=== PATIENT | female | born 1980 | race Caucasian/White ===

== ENCOUNTER → 2018-01-19 11:22 | Outpatient (REF) | payer BC, SELFPAY ==
--- NOTE | 2018-01-19 15:20 | PAPFT_PTH ---
PATIENT: Sary Dockery LOC: [facility] U#:[id number] AGE/SX: 45/F ROOM: RE01/19/[address]: Brittney Goldstein MD, DC : 1980 BED: DIS: SPEC #: [id number] RECD: 01/20/18 12:56 STATUS: MARY REMinal #: [id number] DAVID: 01/19/18 15:[address]: Brittney Goldstein DEPT: [facility] Cytology RECD BY: Indigo Cueva Tissues: 1 - CX/ENDOCX FOR PAP SMEARS Procedures: PAP THIN PREP/UVM Screening HPV DNA PROBE Comments: [id number]
== END ==
LOC: LBN 11:22
PROVIDERS: PCP Family Medicine; Visit Provider Family Medicine
DX: Z12.4 Encounter for screening for malignant neoplasm of cervix (principal); Z11.51 Encounter for screening for human papillomavirus (HPV)
CPT/HCPCS: 88142; 87624

== ENCOUNTER 2018-07-07 11:50 | Outpatient (REF) | payer BC, SELFPAY | END 2018-07-07 12:10 | LOC: LBN 11:50 | PROVIDERS: PCP Family Medicine; Visit Provider Family Medicine | DX: J06.9 Acute upper respiratory infection, unspecified (principal) | CPT/HCPCS: 87449 ==

== ENCOUNTER 2019-07-17 18:03 | Emergency (ER) | payer BC, SELFPAY ==
[2019-07-17 18:10] VITALS: BP 154/104; PULSE 105; TEMP 36.7; O2SAT 99
--- NOTE | 2019-07-17 19:05 | ED.GENADUL_ITS ---
Discharge Plan Disposition Patient Disposition: HOME Condition: Stable Discharge Details Chief Complaint: Orthopedic Clinical Impression: Rupture of left plantaris tendon Primary Care Provider: Brittney Goldstein ED Provider: Mounika Best Home Meds and New Rx's Prescriptions: No Action fluticasone propionate 50 mcg/actuation spray,suspension 2 spray NS BID PRN (Reason: allergy symptoms) Qty: 9.9 RF: 0 sertraline 100 mg tablet 100 mg PO DAILY Qty: 90 RF: 4 albuterol sulfate [ProAir HFA] 8.5 GM HFA aerosol inhaler 2 puff Inhalation Q4H PRN Qty: 1 RF: 12 Mirena 1 EACH intrauterine device 1 ea Intrauterine ONCE Qty: 1 RF: 0 triamcinolone acetonide 0.1 % ointment 1 applic Topical BID PRNQty: 80 RF: 3 omeprazole 20 mg capsule,delayed release(DR/EC) 20 mg PO DAILY Qty: 90 RF: 12 hydrochlorothiazide 25 mg tablet 25 mg PO DAILY Qty: 90 RF: 11 ibuprofen 200 mg Tablet 800 mg PO Q6H PRNRF: 0 Discharge Instructions Instructions: Tendon Rupture (ED) Additional Instructions: Rest. Activities as tolerated. Elevate injury to prevent swelling. Ice to the area of discomfort for 15 min. 3-5 times daily. Motrin every 8 hours with food or Tylenol every 6 hours for soreness if needed over the counter for comfort. Followup with orthopedic doctor as discussed for reevaluation Hans wrap and crutches as discussed. Return for any worsening or concerns sooner if needed. Stand Alone Forms: Work Release Referrals: Godfrey Donovan MD [ [facility] STAFF PHYSICIAN] - Medical Decision Making Is a very pleasant 39-year-old woman presenting to the emergency room for complaints of left calf pain which occurred while her child was hanging around her ankle and she was dragging her on the floor playing this evening prior to arrival. Patient reports an immediate and unmistakable pop noted in the left posterior proximal calf. Patient's exam is consistent with plantaris tendon rupture. Nothing to indicate Achilles tendon injury at this time. No Achilles tenderness with palpation. Achilles tendon intact with calf squeeze. Patient's history and exam are consistent with plantaris tendon injury. We did discuss conservative treatments as well as rice. No bony pain with palpation on exam. Full range of motion on exam. Recommended follow-up with orthopedics for reevaluation. Work note provided for light duty, crutches and Hans wrap provided for support. Patient agrees with plan of care. The patient was stable and requested discharge. Prior to discharge, my usual and customary return precautions were reviewed with the patient - this included follow-up instructions and reasons to return to the Emergency Department if conditions worsens, does not improve as expected, or other new concerns arise. HPI General Date/Time Provider Initiated Documentation: 07/17/19 18:51 . HPI Narrative: Is a 39-year-old patient presenting to the emergency room for complaints of left calf pain. Patient was dragging her 12-year-old daughter on the ground while she was hanging around her foot and felt a sharp pop in the proximal aspect of her left calf posteriorly. Patient felt resounding pop and immediate pain. Patient reports pain with ambulation since that time. Denies anterior leg pain. Denies ankle pain or foot pain. No significant knee pain. Injury occurred prior to arrival. No other sites of pain or concerns at this time. No open wounds. Denies numbness, tingling or weakness. Related Data Home Medications Medication Instructions Recorded Confirmed albuterol sulfate [Proair Hfa] 2 puff INHALATION Q4H PRN #1 02/12/17 07/17/19 canister levonorgestrel [Mirena] 1 ea INTRAUTERINE ONCE #1 implant 04/08/17 07/17/19 fluticasone propionate 50 2 spray NS BID PRN #9.9 gm 07/07/18 07/17/19 mcg/actuation nasal spray,suspension sertraline 100 mg tablet 100 mg PO DAILY #90 tab-cap 07/07/18 07/17/19 triamcinolone acetonide 0.1 % 1 applic TOPICAL BID PRN #80 gm 07/07/18 07/17/19 topical ointment omeprazole 20 mg capsule,delayed 20 mg PO DAILY #90 tab-cap 12/16/18 07/17/19 release hydrochlorothiazide 25 mg tablet 25 mg PO DAILY #90 tab-cap 04/20/19 07/17/19 ibuprofen 800 mg PO Q6H PRN 07/17/19 07/17/19 Previous Rx's Medication Instructions Recorded albuterol sulfate [Proair Hfa] 2 puff INHALATION Q4H PRN #1 02/12/17 canister fluticasone propionate 50 2 spray NS BID PRN #9.9 gm 07/07/18 mcg/actuation nasal spray,suspension sertraline 100 mg tablet 100 mg PO DAILY #90 tab-cap 07/07/18 omeprazole 20 mg capsule,delayed 20 mg PO DAILY #90 tab-cap 12/16/18 release hydrochlorothiazide 25 mg tablet 25 mg PO DAILY #90 tab-cap 04/20/19 Allergies Allergy/AdvReac Type Severity Reaction Status Date / Time amoxicillin Allergy Intermediate Rash Unverified 07/17/19 18:13 egg Allergy Intermediate tingling Unverified 07/17/19 18:13 in mouth Sulfa (Sulfonamide AdvReac Intermediate NAUSEA Unverified 07/17/19 18:13 Antibiotics) General Stated Complaint: Orthopedic ALEXANDRO: 3 Review of Systems All systems reviewed & are unremarkable except as noted in HPI and below Musculoskeletal Musculoskeletal: Reports abnormal gait (Limping), Denies back pain, Denies li mited range of motion, Denies numbness and Denies tingling Integumentary/Breasts Skin/Breast: Denies wounds Neurologic Neurologic: Reports abnormal gait (Limping), Denies numbness and Denies tingling [facility] Medical History Angioedema (Chronic 08/11/13) Cervical high risk HPV (human papillomavirus) test positive (Chronic 08/24/14) HPV High Risk NON-16/18 Detected HPV 16 and 18 not detected Depressive disorder (Chronic) Dermatitis, dyshidrotic (Chronic 04/25/15) Essential hypertension (Chronic 03/30/13) with normal norepinephrines, total metanephrines; T3 initially subnormal but then F/U was normal Keloid scar (Resolved) have been injected Lesion of brain (Resolved) neg. CSF; white lesion on MRI; FAC neurology Migraine (Chronic) Seasonal allergic rhinitis (Chronic) Wheezing (Resolved 09/13/13) Surgical History (Updated 01/22/19 @ 06:06 by Aayush Osborne) Dilation and curettage (~04/2012) Family History Mother Essential hypertension Stroke Asthma Father Essential hypertension Personal history of malignant neoplasm Skin Heart disease [place] Hyperlipidemia Sister Essential hypertension Grandfather Personal history of malignant neoplasm LUNG Grandfather Alcohol abuse Essential hypertension Heart disease Hyperlipidemia Grandmother No problems noted. Grandmother Personal history of malignant neoplasm Breast Son No problems noted. Son Depression Daughter No problems noted. Daughter No problems noted. 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 Well hydrated. Alert and oriented. MUSCULOSKELETAL: Limping gait. Right leg exam benign. Left leg no thigh pain with palpation, knee pain with palpation. No significant posterior knee pain with palpation. Moderate proximal posterior calf pain with palpation focally. No evident bruising or swelling. Achilles tendon intact and nontender. No ankle pain with palpation of the foot pain with palpation. Flexion extension intact at foot. Pain in calf proximally with flexion and extension of the ankle. Distal neurovascularly intact. Sensation intact distally. SKIN: Normal. Dry. No rashes. No open wounds NEURO: Alert and awake. Speech clear. PSYCH: Normal affect. Cooperative. Course Vital Signs Vital signs: Vital Signs Temperature 36.7 C 07/17/19 18:10 Pulse 105 H 07/17/19 18:10 Blood Pressure 154/104 H 07/17/19 18:10 Pulse Oximetry 99 07/17/19 18:10 Temperature 36.7 C 07/17/19 18:10 Temperature Source Temporal Artery Scan 07/17/19 18:10 Pulse 105 H 07/17/19 18:10 Respiratory Effort Non-Labored 07/17/19 18:12 Blood Pressure 154/104 H 07/17/19 18:10 Pulse Oximetry 99 07/17/19 18:10 Oxygen Delivery Method Room Air 07/17/19 18:10 Oxygen Flow Rate 0 07/17/19 18:10 Pain Level 6 07/17/19 18:32
== END 2019-07-17 19:14 | disposition home or self-care (01) ==
PROVIDERS: Emergency Provider Physician Assistant; PCP Family Medicine
DX: S86.812A Strain of other muscle(s) and tendon(s) at lower leg level, left leg, initial encounter (principal); X50.9XXA Other and unspecified overexertion or strenuous movements or postures, initial encounter; I10 Essential (primary) hypertension
CPT/HCPCS: 99283; 99282; E0114

== ENCOUNTER 2019-07-28 14:18 | Outpatient (CLI) | payer BC, SELFPAY ==
--- NOTE | 2019-07-28 14:00 | DI.RAD_ITS ---
EXAM: XR TIB/FIB LT INDICATION: PAIN. COMPARISON: No exams were available for comparison TECHNIQUE: 2D digital imaging was performed. FINDINGS: There is no evidence of fracture. Mild to moderate periarticular spurring is seen at the knee. The ankle joint is unremarkable. IMPRESSION: No acute abnormality. Degenerative changes of the knee. DATA REPOSITORY: RADIATION DOSE DELIVERED:
--- NOTE | 2019-07-28 14:15 | DI.RAD_ITS ---
EXAM: XR KNEE RT 3V AP,LAT,LEONA INDICATION: Pain. COMPARISON: No exams were available for comparison TECHNIQUE: 2D digital imaging was performed. FINDINGS: There is severe narrowing of the lateral patellofemoral femoral joint. There is prominent spurring l aterally and lateral patellar tilt. Subchondral cysts are also seen. The femoral tibial joint space s are well maintained. There is prominent spurring from the femoral condyles. Spurring is also seen from the tibial spines. IMPRESSION: Severe degenerative changes of the lateral patellofemoral joint. DATA REPOSITORY: RADIATION DOSE DELIVERED:
--- NOTE | 2019-07-28 14:15 | DI.RAD_ITS ---
EXAM: XR ELBOW LT COMPLETE INDICATION: PAIN. COMPARISON: No exams were available for comparison TECHNIQUE: 2D digital imaging was performed. FINDINGS: No fracture or joint effusion is seen. The joint spaces are well maintained. No soft tissue calcifi cations are seen. IMPRESSION: Negative left elbow. DATA REPOSITORY: RADIATION DOSE DELIVERED:
== END 2019-07-28 14:38 ==
PROVIDERS: PCP Family Medicine; Visit Provider Student in an Organized Health Care Education/Training Program
DX: M25.561 Pain in right knee (principal); M85.461 Solitary bone cyst, right tibia and fibula; M17.0 Bilateral primary osteoarthritis of knee; M79.605 Pain in left leg; M25.522 Pain in left elbow
CPT/HCPCS: 73562; 73080; 73590

== ENCOUNTER 2019-08-02 11:38 | Outpatient (CLI) | payer BC, SELFPAY ==
[2019-08-02 13:24] LABS: HCT 39.2 % (36.0-46.0); HGB 12.8 g/dL (12.0-15.5); Mean Corp. HGB Concentration 32.7 g/dL (32.0-36.0); Mean Corpuscular Hemoglobin 25.5 pg (27.0-33.0); Mean Corpuscular Volume 78.1 fL (80-95); Mean Platelet Volume 10.2 fL (8.0-11.0); Platelet Count 444 x1000/uL (130-400); RBC 5.02 m/cumm (4.00-5.20); RBC Distribution Width 14.6 % (11.7-14.6); White Blood Cell Count 9.29 k/cumm (4.4-10.8)
[2019-08-02 13:40] LABS: ALT 29 U/L (14-59); AST 17 U/L (15-37); Albumin 4.1 g/dL (3.4-5.0); Alkaline Phosphatase 92 U/L (46-116); Anion Gap 10.6 mmol/L (3-11); BUN 18 mg/dL (7-18); Bilirubin, Total 0.7 mg/dL (0.2-1.0); CO2 28.4 mmol/L (21.0-32.0); CREATININE 0.79 mg/dL (0.55-1.02); Chloride 101 mmol/L (98-107); Glucose 98 mg/dL (74-106); Potassium 3.4 mmol/L (3.5-5.1); Sodium 140 mmol/L (136-145); TSH (W/Ref FT4) 2.14 uIU/mL (0.36-3.74); Total Protein 7.7 g/dL (6.4-8.2)
== END 2019-08-02 11:58 ==
PROVIDERS: PCP Family Medicine; Visit Provider Family Medicine
DX: I10 Essential (primary) hypertension (principal)
CPT/HCPCS: 36415; 80053; 85027; 84443

== ENCOUNTER 2019-09-09 09:15 | Emergency (ER) | payer BC, SELFPAY ==
[2019-09-09 09:18] VITALS: BP 137/79; PULSE 96; RESP 18; TEMP 36.4; O2SAT 97
--- NOTE | 2019-09-09 09:23 | W.ED.GENAD ---
Discharge Plan Disposition Patient Disposition: HOME Condition: Stable Discharge Details Chief Complaint: Laceration Clinical Impression: Laceration of toe, Fracture of toe Primary Care Provider: Brittney Goldstein ED Provider: Madelyn Rainey Home Meds and New Rx's Prescriptions: New cephalexin [Keflex] 500 mg capsule 500 mg PO TID 7 Days Qty: 21 RF: 0 Continued fluticasone propionate 50 mcg/actuation spray,suspension 2 spray NS BID PRN (Reason: allergy symptoms) Qty: 9.9 RF: 0 sertraline 100 mg tablet 100 mg PO DAILY Qty: 90 RF: 4 metoprolol succinate 50 mg tablet extended release 24 hr 50 mg PO DAILY Qty: 90 RF: 5 albuterol sulfate [ProAir HFA] 8.5 GM HFA aerosol inhaler 2 puff Inhalation Q4H PRN Qty: 1 RF: 12 Mirena 1 EACH intrauterine device 1 ea Intrauterine ONCE Qty: 1 RF: 0 triamcinolone acetonide 0.1 % ointment 1 applic Topical BID PRNQty: 80 RF: 3 omeprazole 20 mg capsule,delayed release(DR/EC) 20 mg PO DAILY Qty: 90 RF: 12 hydrochlorothiazide 25 mg tablet 25 mg PO DAILY Qty: 90 RF: 11 potassium chloride 20 mEq tablet extended release 20 meq PO DAILY Qty: 90 RF: 5 ibuprofen 200 mg Tablet 800 mg PO Q6H PRNRF: 0 Discharge Instructions Instructions: Laceration (ED), Toe Fracture (ED) Additional Instructions: Keep wound clean and dry. Cover wound with bandage if risk of contamination. Otherwise you can keep the wound open to air if resting at home to allow edges to dry and heal. If you notice any redness, pain or swelling, cover the wound with topical antibiotic ointment. Keep foot elevated as much as possible. Take the antibiotics until finished. Return to the emergency department in 7 days for suture removal. You can return sooner at any time if you develop any fever or worsening pain, swelling or red streaking up your foot. 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 Tetanus up-to-date. There is a 2.5 cm T shaped laceration extending from area below proximal nail bed and extending dorsal to plantar aspect of toe. Nail still intact. No obvious deformities noted. X-ray obtained which notes a chip fracture off the tip of distal phalanx. Toe was anesthetized with digital block and soaked. Toe was inspected and no evidence of foreign body. 5 nylon 5-0 sutures placed. Prescription for Keflex given considering this is an open fracture. She has a history of stomach upset and rash with amoxicillin but has taken Keflex in the past before without reaction. Bacitracin, dressing with Kerlix extending to another toe to forearm as ayla tape and to hold dressing in place. Orthopedic shoe applied. Patient was advised to return here in 7 days for suture removal. HPI General Mode of arrival: wheelchair. Date/Time Provider Initiated Documentation: 09/09/19 09:17. Limitations to Documentation: no limitations. Information obtained by: patient. HPI Narrative: Patient is a 39-year-old female who presents with right fifth toe injury and laceration. Patient states she was walking barefoot at home when her toe hit the sharp edge of a bed frame. She denies any other injuries. Tetanus up-to-date 2017. Related Data Home Medications Medication Instructions Recorded Confirmed albuterol sulfate [ProAir HFA] 2 puff INHALATION Q4H PRN #1 02/12/17 09/09/19 canister Mirena 1 ea INTRAUTERINE ONCE #1 implant 04/08/17 09/09/19 fluticasone propionate 50 2 spray NS BID PRN #9.9 gm 07/07/18 09/09/19 mcg/actuation nasal spray,suspension sertraline 100 mg tablet 100 mg PO DAILY #90 tab-cap 07/07/18 09/09/19 triamcinolone acetonide 0.1 % 1 applic TOPICAL BID PRN #80 gm 07/07/18 09/09/19 topical ointment omeprazole 20 mg capsule,delayed 20 mg PO DAILY #90 tab-cap 12/16/18 09/09/19 release hydrochlorothiazide 25 mg tablet 25 mg PO DAILY #90 tab-cap 04/20/19 09/09/19 ibuprofen 800 mg PO Q6H PRN 07/17/19 09/09/19 metoprolol succinate 50 mg 50 mg PO DAILY #90 tab 08/02/19 09/09/19 tablet,extended release 24 hr potassium chloride 20 mEq 20 meq PO DAILY #90 tab 08/03/19 09/09/19 tablet,extended release cephalexin [Keflex] 500 mg PO TID 7 Days #21 cap 09/09/19 Previous Rx's Medication Instructions Recorded albuterol sulfate [ProAir HFA] 2 puff INHALATION Q4H PRN #1 02/12/17 canister fluticasone propionate 50 2 spray NS BID PRN #9.9 gm 07/07/18 mcg/actuation nasal spray,suspension sertraline 100 mg tablet 100 mg PO DAILY #90 tab-cap 07/07/18 omeprazole 20 mg capsule,delayed 20 mg PO DAILY #90 tab-cap 12/16/18 release hydrochlorothiazide 25 mg tablet 25 mg PO DAILY #90 tab-cap 04/20/19 metoprolol succinate 50 mg 50 mg PO DAILY #90 tab 08/02/19 tablet,extended release 24 hr potassium chloride 20 mEq 20 meq PO DAILY #90 tab 08/03/19 tablet,extended release cephalexin [Keflex] 500 mg PO TID 7 Days #21 cap 09/09/19 Allergies Allergy/AdvReac Type Severity Reaction Status Date / Time amoxicillin Allergy Intermediate Rash Unverified 09/09/19 09:22 egg Allergy Intermediate tingling Unverified 09/09/19 09:22 in mouth Sulfa (Sulfonamide AdvReac Intermediate NAUSEA Unverified 09/09/19 09:22 Antibiotics) General Stated Complaint: Laceration ALEXANDRO: 4 Review of Systems All systems reviewed & are unremarkable except as noted in HPI and below PFSH Medical History (Updated 09/09/19 @ 10:45 by Madelyn Rainey DO) Allergic fungal sinusitis (Inactive 09/13/13) Angioedema (Chronic 08/11/13) Arthritis of knee, right (Inactive) Cervical high risk HPV (human papillomavirus) test positive (Chronic 08/24/14) HPV High Risk NON-16/18 Detected HPV 16 and 18 not detected Chronic pain of right knee (Inactive 04/08/17) Congestion of paranasal sinus (Inactive 12/11/15) Depressive disorder (Chronic) Dermatitis, dyshidrotic (Chronic 04/25/15) Essential hypertension (Chronic 03/30/13) with normal norepinephrines, total metanephrines; T3 initially subnormal but then F/U was normal History of miscarriage (Inactive) Influenza (Inactive) Keloid scar (Resolved) have been injected Left lateral epicondylitis (Inactive) Lesion of brain (Resolved) neg. CSF; white lesion on MRI; FAC neurology Migraine (Chronic) Pleurisy (Inactive) Postnasal drip (Inactive 08/11/13) Rupture of left plantaris tendon (Inactive 07/17/19) Seasonal allergic rhinitis (Chronic) Wheezing (Resolved 09/13/13) Surgical History (Updated 08/02/19 @ 11:25 by Brittney Goldstein MD, DC) Dilation and curettage (~04/2012) Status post dilation and curettage (Inactive) Family History Mother Essential hypertension Stroke Asthma Father Essential hypertension Personal history of malignant neoplasm Skin Heart disease [place] Hyperlipidemia Sister Essential hypertension Grandfather Personal history of malignant neoplasm LUNG Grandfather Alcohol abuse Essential hypertension Heart disease Hyperlipidemia Grandmother No problems noted. Grandmother Personal history of malignant neoplasm Breast Son No problems noted. Son Depression Daughter No problems noted. Daughter No problems noted. 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 Pets and animals: Yes Pets and animals: guinea pig(s) Current gender identity: female What type of physical activity do you participate in: none Lenore/Anabaptist: Druze Special lenore needs: No Do you feel safe at home: Yes Do you feel safe in your relationship?: Yes Exam Const General: cooperative, healthy appearing and no acute distress HENMT Head: normal to inspection Mouth: oral mucosae normal Eyes General: appearance normal, both eyes and all related structures Neck Neck: normal visual inspection Resp Effort & Inspection: normal respiratory effort and able to speak in complete sentences Cardio Rate: regular rate Skin General skin exam: no rashes or lesions noted Neuro General: patient alert, patient awake and patient oriented x3 Motor: muscle tone normal throughout Extrem Hand/finger images: 1. R 5th toe 2. R 5th toe Other: 2.5 cm T shaped laceration extending from area below proximal nail and extending along dorsal surface of right fifth toe medial to nail and extending around to plantar surface of toe. Bleeding controlled. Nail still appears intact. Range of motion limited due to pain. No other toe or foot injuries noted. Psych Appearance: grossly normal Affect: normal affect Course Vital Signs Vital signs: Vital Signs Temperature 97.5 F L 09/09/19 09:18 Pulse 96 H 09/09/19 09:18 Respiratory Rate 18 09/09/19 09:18 Blood Pressure 137/79 09/09/19 09:18 Pulse Oximetry 97 09/09/19 09:18 Temperature 97.5 F L 09/09/19 09:18 Temperature Source Temporal Artery Scan 09/09/19 09:18 Pulse 96 H 09/09/19 09:18 Respiratory Rate 18 09/09/19 09:18 Respiratory Effort Non-Labored 09/09/19 09:21 Blood Pressure 137/79 09/09/19 09:18 Blood Pressure Position Sitting 09/09/19 09:18 Pulse Oximetry 97 09/09/19 09:18 Oxygen Delivery Method Room Air 09/09/19 09:18 Oxygen Flow Rate 0 09/09/19 09:18 Pain Level 8 09/09/19 09:18 Procedures Laceration Laceration 1: Site: lower extremity (5th toe) Side (If applicable): right Size (cm): 2.5 Description: linear Depth: simple, single layer Local Anesthetic: Lidocaine 1% Amount of anesthesia used (mL): 3 Pre-repair: wound explored, irrigated extensively, deep structures intact and wound margins revised (3x1mm thin flap of skin removed below nail bed near proximal toe) Skin layer closed with: nylon Size (cm): 5-0 Number of sutures: 5 Technique: simple, interrupted
[2019-09-09] MEDS: Ibuprofen 600 MG TAB PO (09:39)
--- NOTE | 2019-09-09 09:40 | DI.RAD_ITS ---
EXAM: XR TOE RT FIFTH CLINICAL HISTORY: laceration end of toe, r/o fracture/foreign body. TECHNIQUE: 2D digital imaging was performed. COMPARISON: No exams were available for comparison FINDINGS: BONES: Please see below. No bony destructive lesion is seen. JOINTS: No dislocation present. SOFT TISSUE: There is a 2.3 mm density in the soft tissues of the lateral aspect of the tip of the 5t h toe. IMPRESSION: 1. No evidence of acute fracture, dislocation, or subluxation. 2. 2.3 mm density in the soft tissues at the tip of the right 5th toe. This may represent an avulsed fracture fragment. Findings were discussed with the emergency department on the date of the examination. DATA REPOSITORY: RADIATION DOSE DELIVERED:
== END 2019-09-09 11:00 | disposition home or self-care (01) ==
PROVIDERS: Emergency Provider Physician Assistant; PCP Family Medicine
DX: S92.504 Nondisplaced unspecified fracture of right lesser toe(s) (principal); W26.8XXA Contact with other sharp object(s), not elsewhere classified, initial encounter; G89.11 Acute pain due to trauma; I10 Essential (primary) hypertension
CPT/HCPCS: 12001; 64450; 73660

== ENCOUNTER 2019-09-16 10:31 | Emergency (ER) | payer BC, SELFPAY ==
[2019-09-16 10:34] VITALS: BP 131/71; PULSE 81; RESP 16; TEMP 37; O2SAT 97
--- NOTE | 2019-09-16 10:48 | ED.GENADUL_ITS ---
Discharge Plan Disposition Patient Disposition: HOME Condition: Stable Discharge Details Chief Complaint: SutureRem Clinical Impression: Encounter for removal of sutures Primary Care Provider: Brittney Goldstein ED Provider: Wade Oniel Home Meds and New Rx's Prescriptions: No Action fluticasone propionate 50 mcg/actuation spray,suspension 2 spray NS BID PRN (Reason: allergy symptoms) Qty: 9.9 RF: 0 sertraline 100 mg tablet 100 mg PO DAILY Qty: 90 RF: 4 metoprolol succinate 50 mg tablet extended release 24 hr 50 mg PO DAILY Qty: 90 RF: 5 albuterol sulfate [ProAir HFA] 8.5 GM HFA aerosol inhaler 2 puff Inhalation Q4H PRN Qty: 1 RF: 12 Mirena 1 EACH intrauterine device 1 ea Intrauterine ONCE Qty: 1 RF: 0 triamcinolone acetonide 0.1 % ointment 1 applic Topical BID PRNQty: 80 RF: 3 omeprazole 20 mg capsule,delayed release(DR/EC) 20 mg PO DAILY Qty: 90 RF: 12 hydrochlorothiazide 25 mg tablet 25 mg PO DAILY Qty: 90 RF: 11 potassium chloride 20 mEq tablet extended release 20 meq PO DAILY Qty: 90 RF: 5 ibuprofen 200 mg Tablet 800 mg PO Q6H PRNRF: 0 cephalexin [Keflex] 500 mg Capsule 500 mg PO TID RF: 0 Discharge Instructions Instructions: Stitches Removal (ED) Additional Instructions: Sutures removed without difficulty. Please keep the area clean and dry, you may continue applying antibiotic ointment. Watch for new or worsening symptoms and return to the ER for any concerns Medical Decision Making Presents for a suture removal. Wound appears well, healing nicely. No erythema, warmth, drainage. Will remove sutures I personally removed 5 sutures no difficulty. Patient tolerated well. No additional questions or concerns Medical Records Medical records reviewed: Yes I reviewed the patient's medical records. HPI General Mode of arrival: ambulatory . Date/Time Provider Initiated Documentation: 09/16/19 10:31 . Limitations to Documentation: no limitations . Information obtained by: patient . HPI Narrative: 39-year-old female who was seen in our ER on the 9th of this month after sustaining a laceration to her fifth right toe. She is here now for suture removal. Reports the pain is significantly improved. Denies drainage, redness, fever. Denies numbness, tingling, weakness. No additional concerns or complaints Related Data Home Medications Medication Instructions Recorded Confirmed albuterol sulfate [ProAir HFA] 2 puff INHALATION Q4H PRN #1 02/12/17 09/16/19 canister Mirena 1 ea INTRAUTERINE ONCE #1 implant 04/08/17 09/16/19 fluticasone propionate 50 2 spray NS BID PRN #9.9 gm 07/07/18 09/16/19 mcg/actuation nasal spray,suspension sertraline 100 mg tablet 100 mg PO DAILY #90 tab-cap 07/07/18 09/16/19 triamcinolone acetonide 0.1 % 1 applic TOPICAL BID PRN #80 gm 07/07/18 09/16/19 topical ointment omeprazole 20 mg capsule,delayed 20 mg PO DAILY #90 tab-cap 12/16/18 09/16/19 release hydrochlorothiazide 25 mg tablet 25 mg PO DAILY #90 tab-cap 04/20/19 09/16/19 ibuprofen 800 mg PO Q6H PRN 07/17/19 09/16/19 metoprolol succinate 50 mg 50 mg PO DAILY #90 tab 08/02/19 09/16/19 tablet,extended release 24 hr potassium chloride 20 mEq 20 meq PO DAILY #90 tab 08/03/19 09/16/19 tablet,extended release cephalexin [Keflex] 500 mg PO TID 09/16/19 09/16/19 Previous Rx's Medication Instructions Recorded albuterol sulfate [ProAir HFA] 2 puff INHALATION Q4H PRN #1 02/12/17 canister fluticasone propionate 50 2 spray NS BID PRN #9.9 gm 07/07/18 mcg/actuation nasal spray,suspension sertraline 100 mg tablet 100 mg PO DAILY #90 tab-cap 07/07/18 omeprazole 20 mg capsule,delayed 20 mg PO DAILY #90 tab-cap 12/16/18 release hydrochlorothiazide 25 mg tablet 25 mg PO DAILY #90 tab-cap 04/20/19 metoprolol succinate 50 mg 50 mg PO DAILY #90 tab 08/02/19 tablet,extended release 24 hr potassium chloride 20 mEq 20 meq PO DAILY #90 tab 08/03/19 tablet,extended release Allergies Allergy/AdvReac Type Severity Reaction Status Date / Time amoxicillin Allergy Intermediate Rash Unverified 09/16/19 10:37 egg Allergy Intermediate tingling Unverified 09/16/19 10:37 in mouth Sulfa (Sulfonamide AdvReac Intermediate NAUSEA Unverified 09/16/19 10:37 Antibiotics) General Stated Complaint: SutureRem ALEXANDRO: 5 Review of Systems Constitutional Constitutional: Denies fever(s) Musculoskeletal Musculoskeletal: Denies numbness and Denies tingling Integumentary/Breasts Skin/Breast: Denies rash Neurologic Neurologic: Denies numbness and Denies tingling [facility] Medical History Allergic fungal sinusitis (Inactive 09/13/13) Angioedema (Chronic 08/11/13) Arthritis of knee, right (Inactive) Cervical high risk HPV (human papillomavirus) test positive (Chronic 08/24/14) HPV High Risk NON-16/18 Detected HPV 16 and 18 not detected Chronic pain of right knee (Inactive 04/08/17) Congestion of paranasal sinus (Inactive 12/11/15) Depressive disorder (Chronic) Dermatitis, dyshidrotic (Chronic 04/25/15) Essential hypertension (Chronic 03/30/13) with normal norepinephrines, total metanephrines; T3 initially subnormal but then F/U was normal History of miscarriage (Inactive) Influenza (Inactive) Keloid scar (Resolved) have been injected Left lateral epicondylitis (Inactive) Lesion of brain (Resolved) neg. CSF; white lesion on MRI; FAC neurology Migraine (Chronic) Pleurisy (Inactive) Postnasal drip (Inactive 08/11/13) Rupture of left plantaris tendon (Inactive 07/17/19) Seasonal allergic rhinitis (Chronic) Wheezing (Resolved 09/13/13) Surgical History Dilation and curettage (~04/2012) Status post dilation and curettage (Inactive) Family History Mother Essential hypertension Stroke Asthma Father Essential hypertension Personal history of malignant neoplasm Skin Heart disease MS Hyperlipidemia Sister Essential hypertension Grandfather Personal history of malignant neoplasm LUNG Grandfather Alcohol abuse Essential hypertension Heart disease Hyperlipidemia Grandmother No problems noted. Grandmother Personal history of malignant neoplasm Breast Son No problems noted. Son Depression Daughter No problems noted. Daughter No problems noted. 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 Pets and animals: Yes Pets and animals: guinea pig(s) Current gender identity: female What type of physical activity do you participate in: none Lenore/Orthodox: Congregational Special lenore needs: No Do you feel safe at home: Yes Do you feel safe in your relationship?: Yes Exam Const General: cooperative, healthy appearing, comfortable and no acute distress Orientation: alert and awake HENMT Head: normal to inspection, normocephalic and atraumatic Mouth: moist mucous membranes Eyes Conjunctivae: conjunctivae normal Neck Neck: normal visual inspection, trachea midline and supple Resp Effort & Inspection: normal respiratory effort and able to speak in complete sentences Cardio Rate: regular rate Rhythm: regular rhythm Skin General skin exam: no rashes or lesions noted Neuro General: patient alert, patient awake, moves all extremities and no focal motor deficits Sensory Exam: no sensory deficits noted Extrem Right lower extremity: foot (Fifth toe, 5 sutures intact, well-healing wound, no infection) Psych Appearance: grossly normal Mental Status: mental status grossly normal Course Vital Signs Vital signs: Vital Signs Temperature 37 C 09/16/19 10:34 Pulse 81 09/16/19 10:34 Respiratory Rate 16 09/16/19 10:34 Blood Pressure 131/71 09/16/19 10:34 Pulse Oximetry 97 09/16/19 10:34 Temperature 37 C 09/16/19 10:34 Temperature Source Skin 09/16/19 10:34 Pulse 81 09/16/19 10:34 Respiratory Rate 16 09/16/19 10:34 Respiratory Effort 09/16/19 10:39 Blood Pressure 131/71 09/16/19 10:34 Blood Pressure Position Sitting 09/16/19 10:34 Pulse Oximetry 97 09/16/19 10:34 Oxygen Delivery Method Room Air 09/16/19 10:34 Oxygen Flow Rate 0 09/16/19 10:34 Pain Level 2 09/16/19 10:34
[2019-09-16 10:54] VITALS: BP 131/71; PULSE 81; RESP 16; TEMP 37; O2SAT 97
== END 2019-09-16 10:55 | disposition home or self-care (01) ==
PROVIDERS: Emergency Provider Physician Assistant; PCP Family Medicine
DX: S91.114D Laceration without foreign body of right lesser toe(s) without damage to nail, subsequent encounter (principal); X58.XXXD Exposure to other specified factors, subsequent encounter; Z48.02 Encounter for removal of sutures; I10 Essential (primary) hypertension

== ENCOUNTER 2020-03-30 07:59 | Outpatient (CLI) | payer BC, SELFPAY ==
[2020-04-03 20:55] LABS: Patient Race White; SARS-CoV-2 RNA Undetected (Undetected); SARS-CoV-2 Specimen Source Nasal
== END 2020-03-30 08:19 ==
PROVIDERS: PCP Family Medicine; Visit Provider Family Medicine
DX: R53.83 Other fatigue (principal); R51.9 Headache, unspecified; R09.81 Nasal congestion
CPT/HCPCS: U0003

== ENCOUNTER 2020-04-20 17:54 | Outpatient (REF) | payer BC, SELFPAY ==
[2020-04-24 20:30] LABS: Patient Race White; SARS-CoV-2 RNA Undetected (Undetected); SARS-CoV-2 Specimen Source Nasal
== END 2020-04-20 18:14 ==
LOC: LBN 17:54
PROVIDERS: PCP Family Medicine; Visit Provider Nurse Practitioner
DX: R53.83 Other fatigue (principal); R09.89 Other specified symptoms and signs involving the circulatory and respiratory systems
CPT/HCPCS: U0003

== ENCOUNTER 2020-05-08 08:24 | Outpatient (CLI) | payer BC, SELFPAY ==
[2020-05-10 09:42] LABS: COVID-19 RT-PCR Result NEGATIVE (Negative)
== END 2020-05-08 08:44 ==
PROVIDERS: PCP Family Medicine; Visit Provider Family Medicine
DX: R06.02 Shortness of breath (principal); R52 Pain, unspecified
CPT/HCPCS: U0003

== ENCOUNTER 2020-05-12 03:39 | Outpatient (CLI) | payer BC, SELFPAY ==
[2020-05-14 16:46] LABS: COVID-19 RT-PCR Result NEGATIVE (Negative)
== END 2020-05-12 03:59 ==
PROVIDERS: PCP Family Medicine; Visit Provider Family Medicine
DX: Z20.828 Contact with and (suspected) exposure to other viral communicable diseases (principal)
CPT/HCPCS: U0003

== ENCOUNTER 2020-10-02 13:52 | Outpatient (REF) | payer BC, SELFPAY ==
--- NOTE | 2020-10-02 09:30 | PAPFT_PTH ---
PATIENT: Sary Dockery LOC: [facility] U#:[id number] AGE/SX: 40/F ROOM: RE10/02/[address]: Brittney Goldstein MD, DC : 1980 BED: DIS: 10/02/2020 SPEC #: [id number] RECD: 10/02/20 18:36 STATUS: MARY REMinal #: [id number] DAVID: 10/02/20 09:[address]: Brittney Goldstein DEPT: COUNT INCLUDES THE [facility] Cytology RECD BY: Indigo Cueva Tissues: 1 - CX/ENDOCX FOR PAP SMEARS Procedures: PAP THIN PREP/UVM Screening HPV DNA PROBE Comments: [id number]
[2020-10-02 14:59] LABS: ALT 30 U/L (14-59); AST 16 U/L (15-37); Alkaline Phosphatase 99 U/L (46-116); Anion Gap 10.1 mmol/L (3-11); BUN 15 mg/dL (7-18); Bilirubin, Total 0.7 mg/dL (0.2-1.0); CO2 29.9 mmol/L (21.0-32.0); CREATININE 0.8 mg/dL (0.55-1.02); Calcium 9.1 mg/dL (8.5-10.1); Calculated LDL 104 mg/dL (<100); Chloride 103 mmol/L (98-107); Cholesterol 177 mg/dL (<200); Glucose 141 mg/dL (74-106); HDL Cholesterol 35 mg/dL (40-60); Potassium 3.9 mmol/L (3.5-5.1); Sodium 143 mmol/L (136-145); TSH (W/Ref FT4) 1.86 uIU/mL (0.36-3.74); Total Protein 8.3 g/dL (6.4-8.2); Triglyceride 193 mg/dL (<150)
== END 2020-10-02 13:53 | disposition home or self-care (01) ==
LOC: LBN 13:52
PROVIDERS: PCP Family Medicine; Visit Provider Family Medicine
DX: Z00.00 Encounter for general adult medical examination without abnormal findings (principal); Z13.220 Encounter for screening for lipoid disorders; Z13.228 Encounter for screening for other metabolic disorders; Z12.4 Encounter for screening for malignant neoplasm of cervix; Z87.42 Personal history of other diseases of the female genital tract; Z11.51 Encounter for screening for human papillomavirus (HPV); Z13.29 Encounter for screening for other suspected endocrine disorder
CPT/HCPCS: 80053; 80061; 88142; 84443; 87624

== ENCOUNTER 2021-11-23 08:22 | Outpatient (CLI) | payer BC, SELFPAY ==
--- NOTE | 2021-11-23 08:15 | DI.RAD_ITS ---
Exam(s) XR KNEE RT 1V XR STANDING ALIGNMENT EXAM: XR STANDING ALIGNMENT and XR knee RT 1 V CLINICAL HISTORY: PRE OP R TKA. TECHNIQUE: 2D digital imaging was performed. COMPARISON: CR XR KNEE RT 3V AP,LAT,LEONA from 07/28/2019 CR XR TIB/FIB LT from 07/28/2019 CR XR KNEE RT 1V from 11/23/2021 FINDINGS: BONES: No acute fracture is present. No bony destructive lesion is seen. The visualized hips are unre markable. There are moderate degenerative changes seen in the knees bilaterally with periarticular s purring seen in both the medial and lateral femoral tibial joint spaces. In the right knee, there al so is joint space narrowing and periarticular spurring of the patellofemoral joint. The ankles are w ell maintained. No significant leg length discrepancy is noted. SOFT TISSUE: Normal. IMPRESSION: Osteoarthritis of the knees bilaterally. DATA REPOSITORY: RADIATION DOSE DELIVERED:
== END 2021-11-23 08:23 | disposition home or self-care (01) ==
LOC: DIORS 08:22
PROVIDERS: PCP Family Medicine; Referring Provider Family Medicine; Visit Provider Physician Assistant
DX: M25.561 Pain in right knee; M17.11 Unilateral primary osteoarthritis, right knee
CPT/HCPCS: 73560; 77073

== ENCOUNTER 2021-11-26 03:16 | Outpatient (CLI) | payer BC, SELFPAY ==
[2021-11-26 11:10] LABS: HCT 39.4 % (36.0-46.0); MCH 25.6 pg (27.0-33.0); MCV 78 fL (80-95); MPV 10.1 fL (8.0-11.0); Platelet Count 391 10^3/uL (130-400); RBC 5.08 10^6/uL (3.93-5.22); RDW 13.1 % (11.7-14.6); WBC 8.09 10^3/uL (4.4-10.8)
[2021-11-26 11:30] LABS: ALT 36 U/L (14-59); AST 20 U/L (15-37); Albumin 3.8 g/dL (3.4-5.0); Alkaline Phosphatase 103 U/L (46-116); BUN 15 mg/dL (7-18); Bilirubin, Total 1.1 mg/dL (0.2-1.0); CREATININE 0.9 mg/dL (0.55-1.02); Calcium 9.3 mg/dL (8.5-10.1); Chloride 95 mmol/L (98-107); Glucose 433 mg/dL (74-106); Potassium 3.6 mmol/L (3.5-5.1); Sodium 133 mmol/L (136-145); Total Protein 7.9 g/dL (6.4-8.2)
[2021-11-26 11:30] LABS: Source Nasal/Nares
[2021-11-26 11:31] LABS: Hemoglobin A1C 9.4 % (<5.7)
[2021-11-26 11:46] LABS: Vitamin D 25 Total 30.9 ng/mL (30-100)
[2021-11-26 14:20] LABS: COVID-19 PCR Negative (Negative)
== END 2021-11-26 03:17 | disposition home or self-care (01) ==
LOC: LBO 03:16
PROVIDERS: PCP Family Medicine; Visit Provider Student in an Organized Health Care Education/Training Program
DX: M25.561 Pain in right knee (principal); M17.11 Unilateral primary osteoarthritis, right knee; E11.9 Type 2 diabetes mellitus without complications; M85.80 Other specified disorders of bone density and structure, unspecified site; I10 Essential (primary) hypertension; Z20.822 Contact with and (suspected) exposure to COVID-19; Z01.818 Encounter for other preprocedural examination; Z01.812 Encounter for preprocedural laboratory examination
CPT/HCPCS: 36415; 80048; 80053; 82306; 85027; 87635; 83036

== ENCOUNTER 2022-11-21 02:05 | Outpatient (CLI) | payer BC, SELFPAY ==
[2022-11-21 14:12] LABS: HCT 38.3 % (36.0-46.0); HGB 12.7 g/dL (11.2-15.7); MCH 25.6 pg (27.0-33.0); MCHC 33.2 % (32.0-36.0); MCV 77 fL (80-95); MPV 9.3 fL (8.0-11.0); Platelet Count 387 10^3/uL (130-400); RBC 4.97 10^6/uL (3.93-5.22); RDW 13.5 % (11.7-14.6); RDW-SD 37.7 fL; WBC 9.54 10^3/uL (4.4-10.8)
[2022-11-21 14:23] LABS: Anion Gap 10.9 mmol/L (3-11); BUN 18 mg/dL (7-18); CO2 27.1 mmol/L (21.0-32.0); CREATININE 0.8 mg/dL (0.55-1.02); Calcium 9.4 mg/dL (8.5-10.1); Chloride 103 mmol/L (98-107); Estimated GFR 95.46 (mL/min/1.73m2); Glucose 108 mg/dL (74-106); Potassium 3.8 mmol/L (3.5-5.1); Sodium 141 mmol/L (136-145)
[2022-11-21 14:26] LABS: COMMENT (LAB VIEW ONLY) 117.04 mg/dL; Microalb ug/mg Crea 6.5 ug/mg Cr
== END 2022-11-21 02:06 | disposition home or self-care (01) ==
LOC: LBO 02:05
PROVIDERS: PCP Family Medicine; Visit Provider Student in an Organized Health Care Education/Training Program
DX: M25.561 Pain in right knee (principal); M17.11 Unilateral primary osteoarthritis, right knee; E11.9 Type 2 diabetes mellitus without complications; Z01.818 Encounter for other preprocedural examination; Z01.812 Encounter for preprocedural laboratory examination
CPT/HCPCS: 36415; 80048; 85027; 82043; 82570

== ENCOUNTER 2022-11-27 05:59 | Day surgery (SDC) | payer BC, SELFPAY ==
[2022-11-27] VITALS (18 sets, daily range): BP systolic 99–148; BP diastolic 48–103; PULSE 68–115; RESP 13–20; TEMP 36.1–36.8; O2SAT 95–100; BMI 44.6
--- NOTE | 2022-11-27 06:12 | W.ANESPRE ---
General Info Date of Service Date Performed: 11/27/22 Height: 5 ft 4 in Weight: 117.934 kg Body Mass Index (BMI): 44.6 Surgical Procedure: Operation Date: 11/27/22 07:40 Proposed Procedure Side Surgeon p Knee Total Arthroplasty, Cementless CR/FB Right Jaison Sousa MD Meds Allergies and Home Medications Allergies Allergy/AdvReac Type Severity Reaction Status Date / Time amoxicillin Allergy Intermediate Rash Verified 11/26/22 13:58 egg Allergy Intermediate tingling Verified 11/26/22 13:58 in mouth Sulfa (Sulfonamide AdvReac Intermediate NAUSEA Verified 11/26/22 13:58 Antibiotics) Home Medication Medication Instructions Recorded levonorgestrel 21 mcg/24 hours (8 1 ea intrauterine ONCE #1 implant 04/08/17 yrs) 52 mg intrauterine device (Mirena) triamcinolone acetonide 0.1 % 1 applic topical BID PRN rash #80 10/02/20 topical ointment grams albuterol sulfate 1.25 mg/3 mL 1.25 mg (3 mL) inhalation QID PRN 05/11/21 solution for nebulization shortness of breath or wheezing #75 mL blood sugar diagnostic (Blood #400 ea 11/26/21 Glucose Test strips) blood-glucose meter #1 ea 11/26/21 lancets 33 gauge (OneTouch Delica #400 ea 11/26/21 Lancets) albuterol sulfate 90 mcg/actuation 2 puff inhalation Q4H PRN ##1 02/08/22 aerosol inhaler (ProAir HFA) potassium chloride 20 mEq 20 meq PO DAILY #90 tabs 03/04/22 tablet,extended release metoprolol succinate 100 mg 100 mg PO DAILY #90 tabs 06/25/22 tablet,extended release 24 hr hydrochlorothiazide 25 mg tablet 25 mg PO DAILY #90 tab-caps 08/09/22 celecoxib 200 mg capsule 200 mg PO BID PRN pain #60 caps 10/14/22 amlodipine 5 mg tablet 5 mg PO DAILY #90 tabs 11/06/22 glyburide 5 mg tablet 5 mg PO BID #60 tabs 11/06/22 metformin 500 mg tablet 500 mg PO BID #180 tabs 11/06/22 omeprazole 20 mg capsule,delayed 20 mg PO DAILY #90 tab-caps 11/06/22 release gabapentin 300 mg capsule 300 mg PO QHS #30 caps 11/20/22 Current Visit Medications: Current Medications Generic Name Dose Route Start Last Admin Trade Name Freq PRN Reason Stop Dose Admin Acetaminophen 1,000 mg 11/27/22 06:00 Acetaminophen 500 Mg Tab PO 11/27/22 16:00 PREOP STEPHANIE Celecoxib 400 mg 11/27/22 06:00 Celecoxib 200 Mg Cap PO 11/27/22 16:00 PREOP STEPHANIE Gabapentin 300 mg 11/27/22 06:00 Gabapentin 300 Mg Cap PO 11/27/22 16:00 PREOP STEPHANIE Tranexamic Acid 1,000 mg/ 60 mls @ 360 mls/hr 11/27/22 06:00 Sodium Chloride IVPB 11/27/22 16:00 PREOP STEPHANIE Ringer's Solution 1,000 mls @ 80 mls/hr 11/27/22 06:00 IV 12/26/22 23:59 INFUSION STEPHANIE Cefazolin Sodium 3,000 mg/ 100 mls @ 200 mls/hr 11/27/22 06:00 Sodium Chloride IVPB 11/27/22 23:59 PREOP [facility] IV Miscellaneous Supplies 1 each 11/27/22 06:00 Iv Access IV 12/26/22 23:59 DIRECTED STEPHANIE Sodium Chloride 0 ml 11/27/22 06:00 Normal Saline Flush 10 Ml Syr IV 12/26/22 23:59 PRN PRN Sodium Chloride 0 ml 11/27/22 06:00 Normal Saline 10 Ml Vial IJ 12/26/22 23:59 DIRECTED PRN Sterile Water 0 ml 11/27/22 06:00 Water,Injection,Sterile 10 Ml Vial IJ 12/26/22 23:59 DIRECTED PRN PFSH Active Problems Active Problems: Problem Status Onset Code Angioedema 08/11/13 T78.3XXA Annual physical exam 04/25/15 Z00.00 Cervical high risk HPV (human papillomavirus) test positive 08/24/14 R87.810 Depressive disorder F32.9 Dermatitis, dyshidrotic 04/25/15 L30.1 Essential hypertension 03/30/13 I10 Keloid scar L91.0 Lesion of brain G93.9 Migraine G43.909 Seasonal allergic rhinitis J30.2 Wheezing 09/13/13 R06.2 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 denies this History of miscarriage Hx of fracture of nose x4 states is a mouth breather, hard to breathe through her nose Influenza Left lateral epicondylitis Pleurisy Postnasal drip (08/11/13) Rupture of left plantaris tendon (07/17/19) Medical History Comments:: Pt. states during her C&G they couldnt get her to go to sleep, states they had to gve her 3x the amount to get her to sleep Surgical History Surgical History (Updated 11/21/22 @ 13:20 by Teresa Kraft) Dilation and curettage (~04/2012) H/O wisdom tooth extraction History of colonoscopy Colon injury then inpatient for 1 week due to infection History of endoscopy Tobacco Smoking/Tobacco Use Status: Never Passive smoking exposure: No Second hand exposure: No Alcohol Alcohol Intake: current Alcohol intake frequency: holidays/special occasions only Alcohol type: hard liquor Substance Use Substance use: Never Substance use type: other Details: CBD Gummies Vital Signs and Lab Results Lab Results Blood Type / Crossmatch: No Data to Display Complete Blood Count: White Blood Count 9.54 10^3/uL (4.4-10.8) 11/21/22 14:05 Red Blood Count 4.97 10^6/uL (3.93-5.22) 11/21/22 14:05 Hemoglobin 12.7 g/dL (11.2-15.7) 11/21/22 14:05 Hematocrit 38.3 % (36.0-46.0) 11/21/22 14:05 Platelet Count 387 10^3/uL (130-400) 11/21/22 14:05 Complete Metabolic Panel: Sodium 141 mmol/L (136-145) 11/21/22 14:05 Potassium 3.8 mmol/L (3.5-5.1) 11/21/22 14:05 Chloride 103 mmol/L (98-107) 11/21/22 14:05 Carbon Dioxide 27.1 mmol/L (21.0-32.0) 11/21/22 14:05 BUN 18 mg/dL (7-18) 11/21/22 14:05 Creatinine 0.8 mg/dL (0.55-1.02) 11/21/22 14:05 Est GFR (CKD-EPI 2020) 95.46 (mL/min/1.73m2) 11/21/22 14:05 Calcium 9.4 mg/dL (8.5-10.1) 11/21/22 14:05 Glucose 108 mg/dL (74-106) H 11/21/22 14:05 Liver Function Panel: No Data to Display Coagulation Panel: No Data to Display Cardiac Panel: No Data to Display Arterial Blood Gas: No Data to Display Venous Blood Gas: No Data to Display Pancreas Panel: No Data to Display Thyroid Panel: No Data to Display Infectious Disease: No Data to Display Blood Cultures: No Data to Display Toxicology Panel: No Data to Display Panel: No Data to Display Anesthesia Assessment and Plan Anesthesia History Personal History: Other Family History: No Family History of Anesthesia Complications Exercise Tolerance Exercise Tolerance: Metabolic Equivalents>4 Pertinent Negatives Pertinent Negatives: No Symptoms of GERD, No Major Cardiovascular Symptoms or Complaints, No Major Pulmonary Symptoms or Complaints and No History of CVA/TIA Cardiac & Pulmonary Exam Cardiac Exam: Normal S1/S2 Heart Sounds Pulmonary Exam: Clear Bilateral Breath Sounds Implantable Cardiac Device Does patient have a Pacemaker or an ICD?: No Airway Exam Known Difficult Airway: No Mallampati Class: 2 Mouth Opening: Normal (> 3cm) Thyromental Distance: Greater than 3 cm Neck Range of Motion: Full ROM Neck Circumference: Normal Teeth Condition: Normal Dentition ASA Classification ASA Score: ASA 3 Emergency Case?: No NPO Status NPO Status: NPO Clears >2 hours, Solids >8 hours Status Status: Negative HCG Anesthesia Plan Resuscitation Status: Full Code Anesthesia Technique: Spinal Anesthesia Airway Planned: Natural Airway Pain Management: Surgeon and patient request nerve block Monitors Used: Standard Monitors
[2022-11-27] MEDS: Gabapentin 300 MG CAP PO (06:39)
[2022-11-27] MEDS: Acetaminophen 500 MG TAB 1000 MG PO ×2 (06:39→14:37)
[2022-11-27] MEDS: Celecoxib 200 MG CAP 400 MG PO (06:39)
[2022-11-27] MEDS: Lactated Ringers 1,000 ML 80 ML IV (07:10)
--- NOTE | 2022-11-27 07:37 | W.ANESNERVE ---
Nerve Block Single Injection Procedure Date and Time Date Performed: 11/27/22 Procedure Start: 07:24 Location Where Procedure Performed Procedure Location: Day Surgery Unit Reason Performed: Postoperative Analgesia Requesting Provider: Jaison Sousa Timeout Performed Timeout Performed: Yes Monitoring Used ECG, Blood Pressure and SpO2 Sterility Sterility: Hand Hygiene, Surgical Cap, Surgical Mask, Sterile Gloves and Chlorhexidine Sedation Given During Procedure Sedation Given (Indicate Dose Given): Versed IV Dose:: 2 mg Patient Mental Status Patient Mental Status: Awake Nerve Block 1st Nerve Block: Laterality: Right Block Type: Adductor Canal Ultrasound Image Saved?: Yes Needle / Catheter Used: 100mm SonoPlex II Local Anesthetic Bolus (Indicate Dose Given): Lidocaine used for local infiltration of skin, Injected in 3-5ml increments after negative blood aspiration and Bupivacaine 0.25% Dose:: 15 ml Additives (Indicate Dose Given): Normal Saline Ultrasound: Sterile probe cover and gel used Nerve Stimulator: Not Used Paresthesia: None Post Procedure Pain score (0-10): 0 Procedure Tolerated: No Complications and Patient tolerated well Procedure Outcome: Successful Performed By: Giacomo Santos
[2022-11-27] MEDS: ceFAZolin 3,000 MG in Normal Saline 100 ML 200 MG IVPB (07:50)
--- NOTE | 2022-11-27 09:31 | ROE_ITS ---
Date of service: 11/27/22 Time of Service: 09:31 Operative Note Operative Note PRE-OP DIAGNOSIS: Right Knee Osteoarthritis POST-OP DIAGNOSIS: same PROCEDURE: Right Total Knee Replacement SURGEON: Jaison Sousa PERFORMANCE TEST ARCHITECT: Christopher Damon ANESTHESIA TYPE: General LMA/ETT and Spinal Refer to Anesthesia Record ESTIMATED BLOOD LOSS: 100 PATHOLOGY: none sent TOURNIQUET TIME: 0 COMPLICATIONS: None Patient was transported to: PACU Patient's condition: stable Implants: 1. Depuy Attune Cementless Cruciate Retaining Femoral Component, Size 5 2. Depuy Attune Cementless Fixed Bearing Tibial Component, Size 4 3. Depuy Attune 5x5 CR/FB Poly 4. Depuy Attune Patellar Component, Size 35 Indications: I have seen Maite in clinic for symptoms of knee arthritis, confirmed with radiographic findings. She has exhausted nonoperative methods and was having significant limitations in daily function and desired better function and less pain. I discussed the technical details of a knee replacement. I explained the risks of the procedure to include, but not limited to, bleeding, infection, pain, stiffness, fracture, damage to nerves and vessels, damage to muscles and tendons, loosening, need for repeat procedure, blood clot and cardiopulmonary demise. Despite these risks, Maite elected to proceed. Findings: There was significant signs of arthritis throughout the knee, involving all 3 compartments, especially the medial tibia and trochlea. Procedure Description: Maite was greeted in the preoperative holding area where the correct side was identified and marked. The consent was reviewed with the patient and signed. The history and physical was updated. All questions were answered. Preoperative medications were administered: Acetaminophen 1000mg, Celebrex 400mg, and Gabapentin 300mg. An adductor canal block was then administered by the anesthesia team in the PACU. She was taken back to the operating room. A spinal anesthestic was then administered. The patient was placed into the supine position on the operating room table. Posts were placed for positioning during the procedure. All bony prominences were well padded. Prophylactic antibiotics in the form of Cefazolin were administered. 1g of Tranxemic Acid was given intravenously within 30 minutes of incision. The right leg was then prepped with Chloraprep and draped in a standard fashion with impervious stockinette. A second prep with Chloraprep was performed prior to application of Iodine impregnated skin protection. A timeout to confirm correct identity, side and site, procedure, allergies, anesthesia, and medical concerns was performed. With the knee in some flexion, a midline incision was made overlying the knee. There was some motion with incision. This seemed to be proximal without foot /toe motion but yet responsive to stimuli and thus a general anesthetic was administered. Then, full thickness skin flaps were raised once the extensor mechanism was encountered. These were raised medially and laterally. Any bleeding was controlled with electrocautery. Once the extensor mechanism was fully exposed, a medial parapatellar arthrotomy was performed in a flexed position. All bleeding from the arthrotomy and the geniculate arteries was coagulated. A medial subperiosteal peel was performed with electrocautery to the midcoronal plane. Due to the significant varus deformity the entire medial tibial plateau was exposed. The fat pad was removed while keeping the patellar tendon protected. The anterior distal femur synovium was removed for later visualization. The ACL and PCL were resected and the anterior horn of the lateral meniscus was transected. The knee was then flexed with the patella everted. Large osteophytes from the tibia were removed. Large osteophytes from the femur were removed. Using a step drill, and based on preoperative templating, the femoral canal was entered. This was done with a step drill without any difficulty. The intramedullary distal femoral cut guide was inserted, set to a 5 degree valgus cut and 9mm cut thickness. The distal femoral cut guide was then held in position and pinned. With the soft tissues protected, the distal cut was performed. This was passed over a few times to ensure a planar cut. I then turned attention to the tibia. The extramedullary guide was placed onto the leg. The distal aspect was slid medial to adjust for position of center of ankle and stay in line with shaft of the tibia. Approximately 3-5 degrees of posterior slope was kept in the proximal cutting guide. The center of the guide was aligned with the PCL. The stylus was used to assess cut thickness. The medial side, most involved side, was set for a 4mm cut. This was then held in position and pinned into place with 2 additional pins and a cross pin for stability. The medial and lateral collateral ligaments were protected and the cut was performed. With this completed, it was assessed and noted to be of appropriate dimensions. The guide was removed. A spacer block was inserted and the knee was brought into extension. The 5mm spacer block provided full extension, without hyperextension and with stability of both the medial and lateral collateral ligaments was assessed. The pins from the femur and the tibia were then removed. The distal femur was then sized. The anterior stylus was placed onto the lateral ridge of the anterior femur. This indicated a size 5 femur. The external rotation of the guide was adjusted to 3 degrees to match the epicondylar axis, perpendicular to [place]?s line. The 4-in-1 cutting guide was the placed. The posterior medial femur cut was evaluated and appeared of good thickness. The spacer block was inserted underneath the cutting guide and stability was confirmed in 90 degrees of flexion. An lester wing was used to confirm appropriate position of the anterior cut to avoid notching. This cutting guide was ensured to be flush on the cut surface and then pinned into place with headed pins. While protecting the soft tissues, quad tendon, and collateral ligaments, the anterior and posterior cuts were performed with a saw. The central two pins were removed and the posterior and anterior chamfers were cut next. The notch-cutting guide was placed. This was pinned to lateralize the femoral component as much as possible while keeping it flush on the cut surface. This was then pinned into position. A reciprocating saw was used to make the notch cut. A rasp smoothed the cut surfaces. The medial and lateral menisci were removed. A trial femoral component was then inserted, impacted down to the cut surfaces, and the lug holes were drilled. A provisional trial tibial component was placed and the knee was brought through range of motion. There was noted to be excellent extension and flexion. There was no significant instability. The patella was tracking without thumbs. A size 5mm polyethylene component provided the best range of motion and stability with less than 2mm gapping with medial and lateral stress and full extension without significant hyperextension. The tibial cut surface was fully exposed. The tibia was then sized as a 4. The tibia had been previously marked during trialing to correspond to the center of the tibial component to help with rotation. The trial was aligned to this christopher, approximately rotated to the medial 1/3rd of the tibial tubercle. The trial was pinned into place. The tibia was prepared with a reamer and a keel punch and lug holes. The knee was then brought into extension and the patella was measured as 22mm. Using the patellar clamp and cut guide, this was resected to a flat surface with at least 13mm of thickness remaining. The size 35 patella fit the best. This was oriented and then clamped into position. The lugs were drilled. The trial components were removed. The final components were opened on the back table. The periosteal and capsular tissues, especially posteriorly, around the knee were then systematically injected with a periarticular cocktail consisting of 246mg of Ropivacaine, 0.5mg of Epinephrine, 0.08mg of Clonidine, and 30mg of Ketorolac, diluted to 100cc. On the back table, with the implants opened, the cement was mixed. One batch of high viscosity cement was prepared with vacuum assistance. After the cement was ready a small amount was placed on the cut surface of the patella and the patellar button was clamped into position and held. While the cement was hardening, the cementless knee components were placed. Starting with the tibial component, the tibia was subluxed anteriorly and the lug holes of the component were lined up. The tibia was then impacted with an impactor and mallet until the tibial component was in contact with the tibia. The final polyethylene component was inserted. Then, the femoral component was inserted. The lug holes were aligned and the component was impacted into position. The knee was irrigated with Surgiphor Betadine solution. This was allowed to sit in the knee for 3 minutes and then it was irrigated out with saline. After the cement had finally cured, approximately 15min, the clamp was removed from the patella and the knee was taken through range of motion. The patella was tracking with a no-thumbs technique. The capsule was then reapproximated with a No. 1 Vicryl at multiple locations. The capsule was finally closed with a No. 2 Stratafix, barbed suture. The second dosing of 1g TXA was started. Deep tissues were then reapproximated with 0 Vicryl and 2-0 Vicryl. The skin was closed with a running 3-0 Monocryl in a subcuticular fashion. This was reinforced with skin glue. A Mepilex silver dressing was applied along with a [id number] YURIY wrap. A CryoCuff was applied. Maite was transferred to the hospital bed without difficulty an suffering no apparent complication. Maite has a good prognosis. Physical therapy will start today and without restrictions, weight-bearing as tolerated. Aspirin 81mg BID will be used for DVT prophylaxis.
[2022-11-27] MEDS: Normal Saline 10 ML VIAL IJ (10:25)
[2022-11-27] MEDS: HYDROmorphone 2 MG/ML SYR IVP ×4 (10:25→10:55)
[2022-11-27] MEDS: oxyCODONE 5 MG TAB PO ×2 (11:30→13:24)
--- NOTE | 2022-11-27 12:57 | W.PM.DSUDISC ---
Date of service: 11/27/22 Time of Service: 12:30 Discharge Plan Disposition Patient Disposition: Home Condition: Good Discharge Details Reason For Visit: R TKR Attending Provider: Jaison Sousa Primary Care Provider: Brittney Goldstein Home Meds and New Rx's Prescriptions: New acetaminophen 500 mg tablet 1,000 mg PO TID Qty: 90 3RF celecoxib 200 mg capsule 200 mg PO BID Qty: 60 0RF dexamethasone 4 mg tablet 4 mg PO DAILY Qty: 2 0RF oxycodone 5 mg tablet 5 mg PO Q4H MDD 6 tabs PRN (Reason: pain) Qty: 20 0RF Continued triamcinolone acetonide 0.1 % ointment 1 applic Topical BID PRN (Reason: rash) Qty: 80 0RF Mirena 1 EACH intrauterine device 1 ea Intrauterine ONCE Qty: 1 Patient Comments: Placed 02/28/[address] Thompson's office. aj Pt. reports in place today 11/27/22 albuterol sulfate 1.25 mg/3 mL solution for nebulization 1.25 mg inhalation QID PRN (Reason: shortness of breath or wheezing) Qty: 75 0RF (DME) Blood Glucose Test Strip See Rx Instructions .ROUTE .MEDSUPPLY Qty: 400 5RF Rx Instructions: AC and HS 4 times daily testing E11.9 (DME) blood-glucose meter Misc See Rx Instructions .ROUTE .MEDSUPPLY Qty: 1 0RF Rx Instructions: As directed E.11 4 times day testing (DME) lancets [OneTouch Delica Lancets] 33 gauge misc See Rx Instructions .ROUTE DAILY Qty: 400 4RF Rx Instructions: E11.9 4 times/day albuterol sulfate [ProAir HFA] 90 mcg/actuation HFA aerosol inhaler 2 puff Inhalation Q4H PRN Qty: 1 12RF Rx Instructions: dispense with spacer potassium chloride 20 mEq tablet extended release 20 meq PO DAILY Qty: 90 5RF metoprolol succinate 100 mg tablet extended release 24 hr 100 mg PO DAILY Qty: 90 5RF hydrochlorothiazide 25 mg tablet 25 mg PO DAILY Qty: 90 11RF amlodipine 5 mg tablet 5 mg PO DAILY Qty: 90 2RF omeprazole 20 mg capsule,delayed release(DR/EC) 20 mg PO DAILY Qty: 90 3RF glyburide 5 mg tablet 5 mg PO BID Qty: 60 12RF Patient Comments: pt. reports this is PRN Rx Instructions: check BG before PM dose and hold if less than 200. metformin 500 mg tablet 500 mg PO BID Qty: 180 4RF gabapentin 300 mg capsule 300 mg PO QHS Qty: 30 0RF Rx Instructions: Take one tablet nightly for pain Discontinued celecoxib 200 mg capsule 200 mg PO BID PRN (Reason: pain) Qty: 60 2RF Rx Instructions: Take one tablet twice daily for pain and inflammation Discharge Instructions Additional Instructions: Total Knee Discharge Instructions Activity: The most important activity is to walk and to work on gentle motion (both flexion and extension). You should try to take short walks a few times a day. It is important that when resting you work on keeping the knee straight. Avoid putting a pillow behind the knee as this will encourage flexion. Work on range of motion exercises as provided by Physical Therapy. - Start outpatient physical therapy within 2 weeks. - You should wear the JOSUÉ hose on both legs for 2 weeks. You may remove these at night. You may also use any compression sock in place of the JOSUÉ hose. - Utilize Esphion to review exercises, see videos on exercises and obtain basic information pertaining to your surgery and your recovery. Dressing: Remove the Hans wrap by 2 days after your surgery and put on the JOSUÉ stocking given to you from the hospital. Keep the surgical dressing (underneath the HANS wrap) in place for at least one week. After the first week it may be removed and replaced with light gauze and tape or nothing. The wound and dressing may get wet after 3 days but avoid soaking the dressing or otherwise it will need to be changed. Many people prefer covering the dressing with cling wrap (saran wrap) to minimize it from getting soaked. If it gets wet, just pat dry. If it starts to peel off then it will need to be changed. Medications: - You should take Tylenol and anti-inflammatory Celebrex as your primary pain control medications. If the Celebrex is too expensive or not covered, please call the office for another alternative (Advil/Ibuprofen or Naproxen/Aleve) - You have been prescribed a stronger pain medication Oxycodone for breakthrough pain, take as needed as prescribed. - You will continue your stomach acid reduction agent omeprazole to help reduce stomach acid and reflux. - You will continue your Gabapentin to take at night for restlessness and nerve pain. - You will be taking Aspirin 81mg twice a day for DVT prevention unless instructed otherwise. - You have also been prescribed Decadron to take to control post-operative nausea and pain. You will start this tomorrow. Be aware that your blood glucose levels could be high for the next week or so following surgery especially with the addition of Decadron. - If you have constipation you should take Colace or Miralax (both [id number]). It takes most people 3-4 days to have a bowel movement. Follow-up: 2 weeks If you have any acute concerns or questions, please do not hesitate to contact the office at [phone]. You may contact Dr. Sousa with any questions after hours through the hospital at [phone] or on his cell phone at [phone]. Stand Alone Forms: Anesthesia Discharge Inst., Anes.Sugammadex Interaction, Anes.Nerve Block Instructions, Fermin Rehman (DSU) Referrals: Jaison Sousa MD [ [facility] STAFF PHYSICIAN] - Equipment/Supplies: Walker Activity:: Activity as Tolerated Shower/Bathe:: 72 hours Diet:: As Tolerated Discharge Orders Discharge Orders: Discharge Order (Routine); Ordered 11/27/22 Ordered By: Jaison Sousa DS: Diagnosis Discharge Diagnosis (1) Primary osteoarthritis of right knee: Status: Acute
--- NOTE | 2022-11-27 13:22 | W.ANESPOSTOP ---
Postoperative Evaluation Date, Time and Location Date Performed: 11/27/22 Time Performed: 12:58 Patient Location: Day Surgery Unit Vital Signs Most Recent Imported Vital Signs: Most Recent Vital Signs Temp Pulse Resp BP Pulse Ox 36.8 C 73 16 118/65 99 11/27/22 12:34 11/27/22 12:34 11/27/22 12:34 11/27/22 12:34 11/27/22 12:34 Pain Score Most Recent Pain Score: Most Recent Pain Score Pain Level 6 11/27/22 12:34 Assessment Mental Status: Awake (Alert & Oriented to Patient Baseline) Airway and Respiratory Function: Patent airway with normal (patient baseline) respiratory exam Cardiovascular Function: Hemodynamically Stable Hydration Status: Adequately Hydrated Nausea & Vomiting: No Nausea or Vomiting Pain: Pain is tolerable per patient Peripheral Nerve Block: Patient did not receive a nerve block Teaching Patient Teaching: Advised to seek followup for the following concerns (See explanation) Concerns: Other (Recommended patient have a sleep study, no reserves and drops O2 saturation with minimal apnea. She reports some snoring at night and unable to breathe through nose, large tongue. ) and Discussed Safe Use of Pain Medication Given Likely or Known TAHIR
--- NOTE | 2022-11-27 14:13 | PT.INIE ---
PT Notes Visit Reasons: R TKR Physical Therapy Day Surgery Initial Evaluation Date: 11/27/2022 Referring Doctor: MARIANO Sorto PT Orders: PT CONSULT: S/P Ortho surgery Precautions: WBAT on right LE with AD. Patient Profile/Admitting Diagnosis: Sary is a 42-year-old female with primary osteoarthritis of the right knee and is status post right total knee arthroplasty on postoperative day 0. PMHX: Medical History?(Updated 11/21/22 @ 13:20 by Teresa Kraft) Allergic fungal sinusitis (09/13/13) Arthritis of knee, right Breast Symptom Chronic pain of right knee (04/08/17) Congestion of paranasal sinus (12/11/15) Hearing difficulty History of miscarriage Influenza Left lateral epicondylitis Pleurisy Postnasal drip (08/11/13) Rupture of left plantaris tendon (07/17/19) Surgical History?(Updated 11/21/22 @ 13:20 by Teresa Kraft) Dilation and curettage (~04/2012) H/O wisdom tooth extraction History of colonoscopy Colon injury then inpatient for 1 week due to infection History of endoscopy Social History/Home Situation: Lives with and 4 kids in a private home with 3 steps to enter with no rails. There is another flight of steps to the second floor where the bedroom is. 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 Independent with all aspects of ADLs prior to surgery. Equipment Owned/DME: [facility] Subjective: Reported 5?6/10 pain on the right knee at rest and with weight bearing, increased to 9/10 with knee bending from stand to sit. Nurse Annie aware. Mild lightheadedness early on, resolved eventually. Denies headache and chest pain throughout. Objective: General Observation: Supine in bed. YURIY wraps to right LE. Cryo/Cuff to right knee. TEDS to left leg. Mental Status: Alert oriented x 4 Pain: As above ROM: Right Lower Extremity: Able to slide R heel up to about 60 degrees of knee bending in bed. While sitting, patient is able to extend the R knee up to -20 degrees Strength: Right Lower Extremity: Knee flexors 3-/5. Knee extensors 3-/5. Sensation: Intact as to pain and light pressure in bilateral lower extremities Bed Mobility/Transfers: Supine to sit standby assist Sit to stand contact-guard assist Stand to sit standby assist Bed to chair standby assist Gait: Instructed patient with level surface ambulation of 75 + 75 feet using front-wheeled walker with step-to gait pattern requiring standby assist. Reported up to 6/10 pain in the right knee. Lightheadedness resolved towards the end of the walk. UTILITY APPRAISER Mary provided to wheelchair follow for safety. Nurse Annie closely monitoring for change in pain report during activity. No LOB. No shortness of breath. Right quad activation adequate. Stairs: Ascended 3 x 4 inch steps and 2 x 6 inch steps holding onto bilateral rails with step to gait pattern without report of increased pain requiring only contact-guard assist. Balance: Static Sitting: Normal Dynamic Sitting: Normal Static Standing: Fair Dynamic Standing: Fair Special Tests: Mobility Limitations Standardized Measure [facility]-P[facility] 6 clicks Basic Mobility Inpatient Short Form: Raw Score: 22 CMS Score: 21% deficit Informed Consent/Education: Patient instructed in purpose of PT consult. Packet containing TKA exercise protocol (see below) has been given to patient. Education and training on initial set of exercises that can be done at home have been completed with patient and patient's . Access Code: [email or web address] URL: [email or web address] Date: 11/27/2022 Prepared by: Bhavna Alvarez Exercises - Supine Quadricep Sets? - 1 x daily - 7 x weekly - 1 sets - 10 reps - 5 hold - Supine Heel Slide? - 1 x daily - 7 x weekly - 1 sets - 10 reps - 5 hold - Supine Ankle Pumps? - 1 x daily - 7 x weekly - 1 sets - 10 reps - 5 hold - Small Range Straight Leg Raise? - 1 x daily - 7 x weekly - 1 sets - 10 reps - 5 hold - Seated July? - 1 x daily - 7 x weekly - 1 sets - 10 reps - 5 hold Assessment: Aniya requires the use of a front wheeled walker to maximize independence and reduce fall risk. Able to work through pain to complete mobility assessment. Patient presents with clinical signs and symptoms consistent with current/admitting diagnoses that have resulted to mobility limitations, gait instability, generalized weakness, and impairment of motor control as demonstrated by the following impairment level findings: 1. Decreased strength to right knee major muscle groups 2. Impaired standing balance 3. Limitation of joint range of motion in right knee Impairments are contributing to the following functional limitations: 1. Inability to safely ambulate without assistive device 2. Increase completion time for mobility ADL performance 3. Increased fall risk Patient is assessed as a 77294 moderate complexity based on the following: History: 42-year-old female with impairment level findings, functional limitations, and past medical history as indicated above Examination: Demonstrable impairment in strength, balance, and mobility level with underlying impairments and functional limitations as documented above Presentation: Evolving Decision Makin moderate complexity Goals: N/A. PT evaluation and 1-2 treatment sessions only for functional mobility training using recommended AD and for HEP instruction. Plan of Care/Treatment Plan: N/A. PT evaluation and 1-2 treatment session only for functional mobility training using recommended AD and for HEP instruction. DISCHARGE RECOMMENDATIONS: Home when medically cleared by orthopedic surgeon. Recommend outpatient PT services in order to optimize functional mobility outcomes, facilitate return to independent community ambulation, and promote return to vocational activities without an assistive device. TREATMENT CODE/TIME: 06586 x 20 minutes, 9753 0 x 24 minutes beginning at 12:56 PM. Thank you for the opportunity to participate in the care of this patient. Bhavna Alvarez PT, DPT, CLT [facility] [place], [place]
== END 2022-11-27 16:00 | disposition home or self-care (01) ==
PROVIDERS: PCP Family Medicine; Visit Provider Student in an Organized Health Care Education/Training Program
PROC: (CPT 27447; principal; 2022-11-27 07:30)
DX: M17.11 Unilateral primary osteoarthritis, right knee (principal); E11.9 Type 2 diabetes mellitus without complications; I10 Essential (primary) hypertension; Z79.84 Long term (current) use of oral hypoglycemic drugs; L40.9 Psoriasis, unspecified
CPT/HCPCS: 27447; 76942; 81025; 97162; 97530; J0690; J1100; J1170; J2001; J2250; J2405; J2704

== ENCOUNTER 2022-12-12 10:20 | Outpatient (CLI) | payer BC, SELFPAY ==
--- NOTE | 2022-12-12 09:00 | DI.RAD_ITS ---
Exam(s) XR STANDING ALIGNMENT EXAM: XR STANDING ALIGNMENT CLINICAL HISTORY: 1ST POST OP S/P R TKA. TECHNIQUE: 2D digital imaging was performed. COMPARISON: CR XR STANDING ALIGNMENT from 11/23/2021 FINDINGS: 3 views There has been interval placement of a right knee prosthesis which appears satisfactory. Moderate de generative changes in the left hip are noted but without narrowing of the medial lateral compartments /predominantly marginal osteophytes. Both hips appear unremarkable. Ankles unremarkable. No osseous lesions. Bone density normal. SI j oints unremarkable. IMPRESSION: As above. DATA REPOSITORY: RADIATION DOSE DELIVERED:
--- NOTE | 2022-12-12 09:00 | DI.RAD_ITS ---
Exam(s) XR KNEE RT 1V EXAM: XR KNEE RT 1V CLINICAL HISTORY: 1ST POST OP S/P R TKA. TECHNIQUE: 2D digital imaging was performed. COMPARISON: CR XR KNEE RT 1V from 11/23/2021 FINDINGS: Single lateral view. There is satisfactory position alignment of the components of the recently placed prosthesis. No fra cture or loosening evident on this view. IMPRESSION: DATA REPOSITORY: RADIATION DOSE DELIVERED:
== END 2022-12-12 10:21 | disposition home or self-care (01) ==
LOC: DIORS 10:20
PROVIDERS: PCP Family Medicine; Referring Provider Family Medicine; Visit Provider Student in an Organized Health Care Education/Training Program
DX: Z96.651 Presence of right artificial knee joint (principal); Z47.1 Aftercare following joint replacement surgery; M17.12 Unilateral primary osteoarthritis, left knee
CPT/HCPCS: 73560; 77073

== ENCOUNTER 2023-02-24 13:58 | Outpatient (REF) | payer BC, SELFPAY ==
[2023-02-24 21:57] LABS: COMMENT (LAB VIEW ONLY) 120.06 mg/dL; Microalb ug/mg Crea 7.5 ug/mg Cr
== END 2023-02-24 13:59 | disposition home or self-care (01) ==
LOC: LBN 13:58
PROVIDERS: PCP Family Medicine; Visit Provider Family Medicine
DX: E11.9 Type 2 diabetes mellitus without complications (principal)
CPT/HCPCS: 82043; 82570

== ENCOUNTER → 2023-03-28 00:16 | Outpatient (CLI) | payer BC, SELFPAY ==
--- NOTE | 2023-03-28 07:45 | DI.MRI_ITS ---
Exam(s) MR LOWER EXTREMITY RT WO EXAM: MR LOWER EXTREMITY RT WO CLINICAL HISTORY: PAIN,hamstring tendinitis rt thigh, m76.891. TECHNIQUE: Multiplanar multisequence MRI was performed. The field of view includes mid thigh through proximal tibia and fibula. COMPARISON: CR XR KNEE RT 1V from 12/12/2022 CR XR STANDING ALIGNMENT from 12/12/2022 FINDINGS: BONES: Total knee prosthesis creates artifact. JOINTS: A small joint effusion is visible.. TENDONS: Extensor mechanism: Unremarkable. Distal hamstring tendon appears intact. MUSCLES: Unremarkable. No muscle edema. SOFT TISSUES: Medial venous varicosities. LIGAMENTS: Not seen. IMPRESSION: Significant artifact related to knee prosthesis. Distal hamstring tendon and quadriceps tendons appe ar intact. Proximal hamstring tendon is not included in the field of view. DATA REPOSITORY:
== END ==
PROVIDERS: PCP Family Medicine; Visit Provider Student in an Organized Health Care Education/Training Program
DX: M76.891 Other specified enthesopathies of right lower limb, excluding foot (principal); Z98.890 Other specified postprocedural states
CPT/HCPCS: 73718

== ENCOUNTER 2023-11-17 05:48 | Outpatient (CLI) | payer BC, SELFPAY ==
[2023-11-17 07:50] LABS: ALT 32 U/L (14-59); AST 13 U/L (15-37); Albumin 4.1 g/dL (3.4-5.0); Alkaline Phosphatase 81 U/L (46-116); Anion Gap 12.3 mmol/L (3-11); BUN 14 mg/dL (7-18); Bilirubin, Total 0.9 mg/dL (0.2-1.0); CO2 27.7 mmol/L (21.0-32.0); CREATININE 0.9 mg/dL (0.55-1.02); Calcium 9.3 mg/dL (8.5-10.1); Calculated LDL 97 mg/dL (<100); Chloride 99 mmol/L (98-107); Cholesterol 173 mg/dL (<200); Estimated GFR 82.37 (mL/min/1.73m2); Glucose 142 mg/dL (74-106); HDL Cholesterol 41 mg/dL (40-60); Potassium 3.6 mmol/L (3.5-5.1); Sodium 139 mmol/L (136-145); Total Protein 8.2 g/dL (6.4-8.2); Triglyceride 175 mg/dL (<150)
== END 2023-11-17 05:49 | disposition home or self-care (01) ==
PROVIDERS: PCP Family Medicine; Visit Provider Family Medicine
DX: I10 Essential (primary) hypertension (principal)
CPT/HCPCS: 36415; 80053; 80061

== ENCOUNTER 2023-12-01 09:10 | Outpatient (CLI) | payer BC, SELFPAY ==
--- NOTE | 2023-12-01 08:45 | DI.RAD_ITS ---
Exam(s) XR KNEE RT 2V AP,LAT EXAM: XR KNEE RT 2V AP,LAT CLINICAL HISTORY: ANNUAL F/U R TKA. TECHNIQUE: 2D digital imaging was performed. Two images were obtained. AP and lateral views were ob tained. COMPARISON: CR XR STANDING ALIGNMENT from 12/12/2022 CR XR KNEE RT 1V from 12/12/2022 FINDINGS: BONES: There are stable post operative changes of a right total knee replacement present. No fractur e or dislocation. JOINTS: The orthopedic hardware is in good position. No evidence of hardware loosening. SOFT TISSUE: Normal. IMPRESSION: Stable right total knee replacement. DATA REPOSITORY: RADIATION DOSE DELIVERED:
== END 2023-12-01 09:11 | disposition home or self-care (01) ==
LOC: DIORS 09:11
PROVIDERS: PCP Family Medicine; Referring Provider Family Medicine; Visit Provider Student in an Organized Health Care Education/Training Program
DX: Z96.651 Presence of right artificial knee joint (principal)
CPT/HCPCS: 73560

== ENCOUNTER 2024-03-13 12:04 | Outpatient (CLI) | payer BC, SELFPAY ==
--- NOTE | 2024-03-13 12:15 | DI.RAD_ITS ---
Exam(s) XR CHEST 2V PA LATERAL EXAM: XR CHEST 2V PA LATERAL CLINICAL HISTORY: evaluate pna. TECHNIQUE: 2D digital imaging was performed. COMPARISON: No exams were available for comparison FINDINGS: 2 views: Heart size is normal. The mediastinum is not widened. Lungs are clear. No infiltrates nor pleural effusions. Density upper right lung region is probably the costochondral junction of the 1st rib IMPRESSION: No acute pulmonary findings. DATA REPOSITORY: RADIATION DOSE DELIVERED:
--- NOTE | 2024-03-13 14:47 | DI.VRAD_ITS ---
PROCEDURE INFORMATION: Exam: XR Chest Exam date and time: 03/13/2024 12:31 PM Age: 43 years old Clinical indication: Cough TECHNIQUE: Imaging protocol: Radiologic exam of the chest. Views: 2 views. COMPARISON: No relevant prior studies available. FINDINGS: Lungs: Unremarkable. No consolidation. Pleural spaces: Unremarkable. No pleural effusion. No pneumothorax. Heart/Mediastinum: Unremarkable. No cardiomegaly. Bones/joints: Unremarkable for patient's age. IMPRESSION: No acute cardiopulmonary findings. Him Dictated and Authenticated by: Pratima Gonzalez MD. Ordering:JOHNSON Benjamin MD
== END 2024-03-13 12:24 ==
LOC: DI 12:07
PROVIDERS: PCP Family Medicine; Visit Provider Nurse Practitioner Family
DX: R05.9 Cough, unspecified (principal)
CPT/HCPCS: 71046

== ENCOUNTER 2024-03-29 16:49 | Outpatient (REF) | payer BC, SELFPAY ==
[2024-03-29 21:44] LABS: Microalb ug/mg Crea 7.6 ug/mg Cr
== END 2024-03-29 16:50 | disposition home or self-care (01) ==
LOC: LBN 16:49
PROVIDERS: PCP Family Medicine; Visit Provider Family Medicine
DX: E11.9 Type 2 diabetes mellitus without complications (principal); Z00.00 Encounter for general adult medical examination without abnormal findings
CPT/HCPCS: 82043; 82570

== ENCOUNTER 2024-10-04 02:53 | Outpatient (CLI) | payer BC, SELFPAY ==
[2024-10-04 16:06] LABS: Hemoglobin A1C 5.6 % (<5.7)
[2024-10-04 17:11] LABS: Microalb ug/mg Crea 6.9 ug/mg Cr
[2024-10-04 17:16] LABS: ALT 21 U/L (14-59); AST 13 U/L (15-37); Albumin 4.2 g/dL (3.4-5.0); Alkaline Phosphatase 80 U/L (46-116); Anion Gap 8.8 mmol/L (3-11); BUN 23 mg/dL (7-18); CO2 30.2 mmol/L (21.0-32.0); Calculated LDL 78 mg/dL (<100); Chloride 102 mmol/L (98-107); Cholesterol 156 mg/dL (<200); Estimated GFR 72.13 (mL/min/1.73m2); Glucose 96 mg/dL (74-106); HDL Cholesterol 44 mg/dL (>or=50); Sodium 141 mmol/L (136-145); Total Protein 8.2 g/dL (6.4-8.2); Triglyceride 171 mg/dL (<150)
== END 2024-10-04 02:54 | disposition home or self-care (01) ==
LOC: LBO 02:54
PROVIDERS: PCP Family Medicine; Visit Provider Family Medicine
DX: I10 Essential (primary) hypertension (principal); Z00.00 Encounter for general adult medical examination without abnormal findings; E11.9 Type 2 diabetes mellitus without complications
CPT/HCPCS: 36415; 80053; 80061; 82043; 82570; 83036

== ENCOUNTER 2024-11-22 13:49 | Outpatient (CLI) | payer BC, SELFPAY ==
--- NOTE | 2024-11-22 13:15 | DI.US_ITS ---
Exam(s) US LOWER EXTREMITY VENOUS RT EXAM: US LOWER EXTREMITY VENOUS RT CLINICAL HISTORY: eval dvt M79.89 SOFT TISSUE DISORDER, LEG SWELLING. TECHNIQUE: Lower extremity venous ultrasound performed using grayscale, color- flow, and spectral Doppler analysis. COMPARISON: US POCUS EXAM from 11/27/2022 CR XR STANDING ALIGNMENT from 12/12/2022 CR XR KNEE RT 1V from 12/12/2022 MR MR LOWER EXTREMITY RT WO from 03/28/2023 CR XR KNEE RT 4V AP,LAT,LEONA,PAT from 11/22/2024 FINDINGS: The common femoral, femoral and popliteal veins demonstrate normal compressibility, augmentation, and color Doppler. The posterior tibial and peroneal veins are patent. No saphenous vein thrombosis is patent. There are small multiple dilated superficial vessels in the medial mid to distal thigh which contain thrombus. No hematoma or Hinds's cyst is seen. IMPRESSION: Multifocal dilatation of superficial vein in the medial mid to distal thigh, containing thrombus. No evidence of DVT. DATA REPOSITORY:
--- NOTE | 2024-11-22 14:42 | DI.RAD_ITS ---
Exam(s) XR KNEE RT 4V AP,LAT,LEONA,PAT EXAM: XR KNEE RT 4V AP,LAT,LEONA,PAT CLINICAL HISTORY: eval pathology M25.561 PAIN RT KNEE. TECHNIQUE: 2D digital imaging was performed. Three views. COMPARISON: CR XR KNEE RT 2V AP,LAT from 12/01/2023 FINDINGS: BONES: No acute fracture is present. No bony destructive lesion is seen. JOINTS: The total knee prosthesis is normally aligned. No joint effusion is seen. SOFT TISSUE: Normal. IMPRESSION: No acute abnormality. DATA REPOSITORY: RADIATION DOSE DELIVERED:
== END 2024-11-22 14:09 ==
LOC: DI 13:51
PROVIDERS: PCP Family Medicine; Visit Provider Nurse Practitioner Family
DX: M79.89 Other specified soft tissue disorders (principal); M25.561 Pain in right knee
CPT/HCPCS: 73564; 93971

== ENCOUNTER → 2025-05-27 00:10 | Outpatient (CLI) | payer BC, SELFPAY ==
--- NOTE | 2025-05-27 08:25 | DI.MAMMO_ITS ---
Exam(s) MAMMO SCREENING EXAM: MAMMO SCREENING CLINICAL HISTORY: screening,z12.39. TECHNIQUE: Bilateral full field digital CC and MLO mammographic images were obtained with 3D tomosynthesis and utilizing computer aided detection (CAD). COMPARISON: Prior outside mammograms were reviewed. FINDINGS: In the right breast there is a new asymmetric density-possible nodule in the upper outer quadrant located 13 cc in from the nipple on the cc and MLO views. Spot compression and ultrasound recommended. There are no malignant-appearing microcalcification groups in this region or elsewhere in either breast. In the posterior aspect of the left breast there is a new asymmetric density- possible nodule which is located 13 cm in from the nipple up against the chest wall. Spot compression view and ultrasound recommended There are no malignant-appearing microcalcification groups in either breast. There is no significant architectural distortion nor skin thickening-retraction. IMPRESSION: No asymmetric density in the upper-outer quadrant of the right breast and new asymmetric density posteriorly in left breast. Bilateral spot compression views and bilateral breast ultrasound recommended BI-RADS Category 0 - Incomplete: Need additional imaging evaluation Breast Density - Category B - There are scattered areas of fibroglandular density. Breast density Category C or D implies that the patient has dense breast tissue. Dense breast tissue can make it harder to find cancer on a mammogram. Dense breast tissue is also associated with an increased risk of breast cancer. This information about the result of the mammogram report was provided to the patient to raise their awareness. Use this report when you speak with the patient about their risks for breast cancer, which includes their family history. At that time, you may recommend additional screening tests (Ultrasound or MRI) as these tests may add significant information. A negative radiographic report should not delay biopsy if a dominant or clinically suspicious mass is present. Up to ten percent of cancers are not identified on mammography. A negative report may reinforce clinical impression. Adenosis and dense breasts may obscure an underlying neoplasm. False positive reports average 6 to 10%. Patient will receive a letter notifying them of these results.
== END ==
LOC: DI 00:10
PROVIDERS: PCP Family Medicine; Visit Provider Family Medicine
DX: Z12.31 Encounter for screening mammogram for malignant neoplasm of breast (principal)
CPT/HCPCS: 77063; 77067